=== PATIENT | female | born 1990 | race Caucasian/White ===

== ENCOUNTER 2017-09-26 13:05 | Outpatient (CLI) | payer MEDICAID ==
--- NOTE | 2017-09-26 16:02 | ULT ---
PELVIC ULTRASOUND WITH DOPPLER: (TRANSABDOMINAL, TRANSVAGINAL, SAMSON SCALE, COLOR FLOW, AND SPECTRAL DOPPLER) Date: 09/26/17 HISTORY: Pelvic pain with bloating. FINDINGS: The uterus is retroverted, measuring 8.6 x 5.4 x 6.8 cm. The endometrium measures 11.0 mm in thicknes s. Nabothian cysts are present in the cervix. The uterine myometrium is heterogeneous without definit e focal mass. No endometrial fluid is seen. The right ovary measures 3.2 x 2.0 x 3.7 cm. The left ovary measures 4.0 x 2.1 x 3.6 cm. No adnexal m ass is seen. There is flow demonstrated to both ovaries. There is a small amount of free fluid in the pelvis. IMPRESSION: Retroverted uterus with heterogeneous myometrium. POS: [facility]
== END 2017-09-26 13:06 | disposition home or self-care (01) ==
LOC: SCSULT 13:05
PROVIDERS: ATTEND Nurse Practitioner Women's Health
DX: N85.4 Malposition of uterus (principal); N85.8 Other specified noninflammatory disorders of uterus
CPT/HCPCS: 76856

== ENCOUNTER 2023-12-20 14:06 | Outpatient (CLI) | payer OTHER ==
[~2023-12-20 14:06] MED LIST: Iopamidol 370 76% 100 ML VIAL ONE
== END 2023-12-20 14:07 | disposition home or self-care (01) ==
LOC: BICCT 14:06
PROVIDERS: ATTEND Physician Assistant Medical
DX: N32.89 Other specified disorders of bladder (principal); N20.0 Calculus of kidney; N83.202 Unspecified ovarian cyst, left side
CPT/HCPCS: 74177; Q9967

== ENCOUNTER 2024-01-25 07:46 | Outpatient (CLI) | payer OTHER | END 2024-01-25 07:47 | disposition home or self-care (01) | LOC: BICMAMMO 07:46 | DX: N64.52 Nipple discharge (principal) | CPT/HCPCS: 77066; G0279 ==